=== PATIENT | female | born 2000 | race Caucasian/White ===

== ENCOUNTER 2021-07-31 19:21 | Emergency (ER) | payer OTHER ==
[~2021-07-31] VITALS: Ht 160 cm; Wt 64.9 kg
== END 2021-07-31 21:48 | disposition home or self-care (01) ==
LOC: ER 19:21
DX: R10.84 Generalized abdominal pain (principal); Z32.01 Encounter for pregnancy test, result positive; Z33.1 Pregnant state, incidental